=== PATIENT | female | born 1960 | race Caucasian/White ===

== ENCOUNTER 2023-09-09 10:17 | Emergency (ER) | payer MEDICARE, SELFPAY ==
[2023-09-09 10:11] VITALS: BP 143/72; PULSE 95; RESP 18; TEMP 36.4; O2SAT 99
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
[2023-09-09 10:40] LABS: Abs Immature Grans 0.08 10^3/uL (0.0-0.06); Absolute Basophil Count 0.05 10^3/uL (0.0-0.2); Absolute Eosinophil Count 0.05 10^3/uL (0.0-0.7); Absolute Lymphocyte Count 1.76 10^3/uL (1.2-3.4); Absolute Neutrophil Count 5.32 10^3/uL (1.2-6.7); Basophils % 0.6; Eosinophils % 0.6; HGB 12.1 g/dL (11.2-15.7); Lymphocytes % 21.6; MCH 41.7 pg (27.0-33.0); MCHC 34.6 % (32.0-36.0); MCV 121 fL (80-95); Neutrophils % 65.2; RDW 14.3 % (11.7-14.6); RDW-SD 64.2 fL; WBC 8.16 10^3/uL (4.4-10.8)
[2023-09-09] MEDS: Omnipaque 350 MG/ML 500 ML BTL-Imaging package IJ (10:43)
[2023-09-09] MEDS: Normal Saline - Diluent 50 ML VIAL IJ (10:48)
[2023-09-09 10:59] LABS: ALT 32 U/L (14-59); AST 24 U/L (15-37); Albumin 3.3 g/dL (3.4-5.0); Alkaline Phosphatase 84 U/L (46-116); Anion Gap 10.3 mmol/L (3-11); BUN 18 mg/dL (7-18); Bilirubin, Total 0.5 mg/dL (0.2-1.0); CO2 22.7 mmol/L (21.0-32.0); CREATININE 0.6 mg/dL (0.55-1.02); Calcium 9.1 mg/dL (8.5-10.1); Chloride 104 mmol/L (98-107); Diff Comment Agrees w/ Instrument; ETHANOL BLOOD 19.2 mg/dL (<10); Estimated GFR 100.17 (mL/min/1.73m2); Glucose 95 mg/dL (74-106); Macrocytosis 2+; Magnesium 2.4 mg/dL (1.8-2.4); Potassium 4.4 mmol/L (3.5-5.1); Sodium 137 mmol/L (136-145); Total Protein 7.3 g/dL (6.4-8.2); Troponin I < 50 ng/L (<or=60)
--- NOTE | 2023-09-09 12:34 | NUR.NOTE ---
Nursing Note: CLOCK REPAIR TECHNICIAN walked with patient. Patient did not need assistance physical assistance.Set up walker only with stand-by Bathroom and back
--- OUTSIDE RECORDS SUMMARY | 2023-09-09 12:58 | XMS_ITS | Continuity of Care Document ---
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 Name Role Phone Sarbjit Briseno Primary Care Physician U navailable Encounter BVT Date(s): 09/08/23 - 09/08/[address] [address]- [phone] Encounter Diagnosis Chronic left hip pain(Discharge Diagnosis) - 09/08/23 Facial laceration(Discharge Diagnosis) - 09/08/23 Discharge Disposition: Home or Self Care Attending Physician: JEOVANNY RODRÍGUEZ Admitting Physician: JEOVANNY RODRÍGUEZ Allergies, Adverse Reactions, Alerts No Known Allergies Assessment and Plan Extracted from: Title:General Medical Problem *ED Author:JEOVANNY RODRÍGUEZ Date:09/08/23 History of Present Illness 62-year-old woman who just 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 She did strike her head breaking her glasses on the right side and sustaining a small scratch near the lateral right eyebrow, no loss of consciousness, no change in vision, no headache or neck pain. No numbness or tingling. Increased left hip pain compared to baseline. She states she is allergic to tetanus vaccines. Review of Systems Constitutional symptoms: No fever, Respiratory symptoms: No shortness of breath, Cardiovascular symptoms: No chest pain, Musculoskeletal symptoms: Joint pain. Neurologic symptoms: No headache, no altered level of consciousness, no numbness. Additional review of systems information: All other systems reviewed and otherwise negative. Health Status Allergies: Allergic Reactions (All) No Known Allergies. Past Medical/ Family/ Social History Medical history: No active or resolved past medical history items have been selected or recorded.. Surgical history: No active procedure history items have been selected or recorded.. Family history: No family history items have been selected or recorded.. Social history: Social & Psychosocial History Social History Alcohol Current Tobacco Current everyday tobacco user Tobacco Use:. Electronic Cigarette/Vaping Electronic Cigarette Use: Never. Psychosocial History No active psychosocial history has been recorded . Problem list: Active Problems (1) Tobacco user . Physical Examination Vital Signs Vital Signs 09/08/2023 20:14 EST Temperature Temporal Artery 35.6 DegC LOW Peripheral Pulse Rate 86 bpm Respiratory Rate 18 br/min Systolic Blood Pressure 153 mmHg HI Diastolic Blood Pressure 76 mmHg Mean Arterial Pressure, Cuff 102 mmHg SpO2 96 % . Measurements 09/08/2023 20:14 EST Height/Length Estimated 160 cm Weight Estimated 84.82 kg Body Mass Index Estimated 33.13 kg/m2 . Basic Oxygen Information 09/08/2023 20:14 EST Oxygen Therapy Room air . General: Alert, no acute distress. Skin: Warm. Head: Normocephalic, small scratch R lateral eyebrow, no active bleeding.. Ears, nose, mouth and throat: Oral mucosa moist. Cardiovascular: Regular rate and rhythm. Respiratory: Lungs are clear to auscultation, respirations are non-labored. Gastrointestinal: Soft, Nontender. Musculoskeletal: Normal ROM, normal strength, mild left hip tenderness, normal ROM. Neurological: Alert and oriented to person, place, time, and situation. Psychiatric: Cooperative, appropriate mood & affect. Medical Decision Making Radiology results: X-ray (ST) X-Ray: ?? XR Hip 2-3 Views Lt w/ Pelvis ?? 09/08/23 21:54:03 EXAMINATION: XR Hip 2-3 Views Lt w/ Pelvis CLINICAL HISTORY: L hip pain s/p fall TECHNIQUE: Single frontal view of the pelvis. 2 views of the left hip. 3 images. COMPARISON: None FINDINGS: Mild degenerative changes in bilateral SI joints. Moderate degenerative changes in bilateral hip joints and pubic symphysis. Symmetric SI joints. No diastasis of SI joints or pubic symphysis. No acute fracture or dislocation. No abnormal soft tissue gas or radiopaque foreign body. IMPRESSION: * No acute fracture or dislocation. * Moderate bilateral hip osteoarthropathy. Thank you for letting us participate in the care of this patient. If you are a health care provider and have any questions regarding this report, please contact the number below. For patients who have questions please contact the health career development coordinator that requested your imaging first. ?? Signed By: NAS HARRY , emergency physician interpretation: No fracture or dislocation appreciated on my independent interpretation. Notes: E collar removed, no tenderness, low risk mechanism, not intoxicated, able to freely range neck without pain or neurologic symptoms, clinically cleared.. Reexamination/ Reevaluation Vital signs Basic Oxygen Information 09/08/2023 20:14 EST Oxygen Therapy Room air Given walker, amble to ambulate to bathroom with walker (which is her baseline). Impression and Plan Diagnosis Facial laceration (STO22-CF S01.81XA, Discharge, Medical) Chronic left hip pain (YRV01-PM M25.552, Discharge, Medical) Plan Condition: Stable. Patient was given the following educational materials: Laceration Care, Adult, Hip Pain. Functional Status 09/08/23 History of Fall in Last 3 Months Perez Y anupam Mental Status 09/08/23 Level of Consciousness Alert Results Radiology Reports * Exam Date Time Procedure Performing Provider Status 09/08/23 9:28 PM XR Hip 2-3 Views Lt w/ Pelvis Milvia Gee; Urvashi (Verified) Notes: (XR Hip 2-3 Views Lt w/ Pelvis) Reason For Exam: L hip pain s/p fall XR Hip 2-3 Views Lt w/ Pelvis EXAMINATION: XR Hip 2-3 Views Lt w/ Pelvis CLINICAL HISTORY: L hip pain s/p fall TECHNIQUE: Single frontal view of the pelvis. 2 views of the left hip. 3 images. COMPARISON: None FINDINGS: Mild degenerative changes in bilateral SI joints. Moderate degenerative changes in bilateral hip joints and pubic symphysis. Symmetric SI joints. No diastasis of SI joints or pubic symphysis. No acute fracture or dislocation. No abnormal soft tissue gas or radiopaque foreign body. IMPRESSION: * No acute fracture or dislocation. * Moderate bilateral hip osteoarthropathy. Thank you for letting us participate in the care of this patient. If you are a health care provider and have any questions regarding this report, please contact the number below. For patients who have questions please contact the health career development coordinator that requested your imaging first. Final Dictated: 09/08/2023 9:54 pm NAS HARRY Signed (Electronic Signature): 09/08/2023 9:54 pm Signed by: NAS HARRY Vital Signs Most recent to oldest [Reference Range]: 1 Temperature Temporal Artery [36.3-37.8 D egC] 35.6 DegC *LOW* (09/08/23 8:14 PM) Peripheral Pulse Rate [60-100 bpm] 86 bp m (09/08/23 8:14 PM) Respiratory Rate [14-20 br/min] 18 br/mi n (09/08/23 8:14 PM) Blood Pressure [90-140/60-90 mmHg] 153/7 6mmHg *HI* (09/08/23 8:14 PM) Mean Arterial Pressure, Cuff [70-110 mmH g] 102 mmHg (09/08/23 8:14 PM) SpO2 [92-100 %] 96 % (09/08/23 8:14 PM) Height/Length Estimated 160 cm (09/08/23 8:14 PM) Weight Estimated 84.82 kg (09/08/23 8:14 PM) Body Mass Index Estimated 33.13 kg/m2 (09/08/23 8:14 PM) Social History Social History Type Response Tobacco Current everyday tob acco user Tobacco Use:. Sex Female Hospital Discharge Instructions Patient Education 09/08/2023 22:15:34 Hip Pain Hip Pain The hip is the joint between the upper legs and the lower pelvis. The bones, cartilage, tendons, and muscles of your hip joint support your body and allow you to move around. Hip pain can range from a minor ache to severe pain in one or both of your hips. The pain may be felt on the inside of the hip joint near the groin, or on the outside near the buttocks and upper thigh. You may also have swelling or stiffness in your hip area. Follow these instructions at home: Managing pain, stiffness, and swelling ??? If directed, put ice on the painful area. To do this: ??? Put ice in a plastic bag. ??? Place a towel between your skin and the bag. ??? Leave the ice on for 20 minutes, 2???3 times a day. ??? If directed, apply heat to the affected area as often as told by your health care provider. Usethe heat source that your health care provider recommends, such as a moist heat pack or a heating pad. ??? Place a towel between your skin and the heat source. ??? Leave the heat on for 20???30 minutes. ??? Remove the heat if your skin turns bright red. This is especially important if you are unable to feel pain, heat, or cold. You may have a greater risk of getting burned. Activity ??? Do exercises as told by your health care provider. ??? Avoid activities that cause pain. General instructions ??? Take ecsg-igk-dxckkie and prescription medicines only as told by your health care provider. ??? Keep a journal of your symptoms. Write down: ??? How often you have hip pain. ??? The location of your pain. ??? What the pain feels like. ??? What makes the pain worse. ??? Sleep with a pillow between your legs on your most comfortable side. ??? Keep all follow-up visits as told by your health care provider. This is important. Contact a health care provider if: ??? You cannot put weight on your leg. ??? Your pain or swelling continues or gets worse after one week. ??? It gets harder to walk. ??? You have a fever. Get help right away if: ??? You fall. ??? You have a sudden increase in pain and swelling in your hip. ??? Your hip is red or swollen or very tender to touch. Summary ??? Hip pain can range from a minor ache to severe pain in one or both of your hips. ??? The pain may be felt on the inside of the hip joint near the groin, or on the outside near the buttocks and upper thigh. ??? Avoid activities that cause pain. ??? Write down how often you have hip pain, the location of the pain, what makes it worse, and whatit feels like. This information is not intended to replace advice given to you by your health care provider. Make sure you discuss any questions you have with your health care provider. Document Revised: 01/31/2020 Document Reviewed: 01/31/2020 [employer] Patient Education ?? 2022 [employer]. 09/08/2023 22:15:34 Laceration Care, Adult Laceration Care, Adult A laceration is a cut that may go through all layers of the skin and into the tissue that is right under the skin. Some lacerations heal on their own. Others need to be closed with stitches (sutures), jaleesa, skin adhesive strips, or skin glue. Proper care of a laceration reduces the risk for infection, helps the laceration heal better, and may prevent scarring. General tips ??? Keep the wound clean and dry. ??? Do not scratch or pick at the wound. ??? Wash your hands with soap and water for at least 20 seconds before and after touching your wound or changing your bandage (dressing). If soap and water are not available, use hand party plan salesperson. ??? Do not usedisinfectants or antiseptics, such as rubbing alcohol, to clean your wound unless told by your health care provider. ??? If you were given a dressing, you should change it at least once a day, or as told by your health care provider. You should also change it if it becomes wet or dirty. How to care for your laceration If sutures or jaleesa were used: ??? Keep the wound completely dry for the first 24 hours, or as told by your health care provider. After that time, you may shower or bathe. Do not soak your wound in water until after the sutures orstaples have been removed. ??? Clean the wound once each day, or as told by your health care provider. To do this: ??? Wash the wound with soap and water. ??? Rinse the wound with water to remove all soap. ??? Pat the wound dry with a clean towel. Do not rub the wound. ??? After cleaning the wound, apply a thin layer of antibiotic ointment, other topical ointments, or a non-adherent dressing as told by your health care provider. This will help prevent infection andkeep the dressing from sticking to the wound. ??? Have the sutures or jaleesa removed as told by your health care provider. Do not remove suturesor jaleesa yourself. If skin adhesive strips were used: ??? Do not get the skin adhesive strips wet. You may shower or bathe, but keep the wound dry. ??? If the wound gets wet, pat it dry with a clean towel. Do not rub the wound. ??? Skin adhesive strips fall off on their own. If adhesive strip edges start to loosen and curl up, you may trim the loose edges. Do not remove adhesive strips completely unless your health care provider tells you to do that. If skin glue was used: ??? You may shower or bathe, but try to keep the wound dry. Do not soak the wound in water. ??? After showering or bathing, pat the wound dry with a clean towel. Do not rub the wound. ??? Do not do any activities that will make you sweat a lot until the skin glue has fallen off. ??? Do not apply liquid, cream, or ointment medicine to the wound while the skin glue is in place. Doing this may loosen the film before the wound has healed. ??? If a dressing is placed over the wound, do not apply tape directly over the skin glue. Doing this may cause the glue to be pulled off before the wound has healed. ??? Do not pick at the glue. Skin glue usually remains in place for 5???10 days and then falls off the skin. Follow these instructions at home: Medicines ??? Take xila-dsw-ykmftca and prescription medicines only as told by your health care provider. ??? If you were prescribed an antibiotic medicine or ointment, take or apply it as told by your health care provider. Do not stop using it even if your condition improves. Managing pain and swelling ??? If directed, put ice on the injured area. To do this: ??? Put ice in a plastic bag. ??? Place a towel between your skin and the bag. ??? Leave the ice on for 20 minutes, 2???3 times a day. ??? Remove the ice if your skin turns bright red. This is very important. If you cannot feel pain, heat, or cold, you have a greater risk of damage to the area. ??? Raise (elevate) the injured area above the level of your heart while you are sitting or lying down for the first 24???48 hours after the laceration is repaired. General instructions ??? Avoid any activity that could cause your wound to reopen. ??? Check your wound every day for signs of infection. Watch for: ??? More redness, swelling, or pain. ??? Fluid or blood. ??? Warmth. ??? Pus or a bad smell. ??? Keep all follow-up visits. This is important. Contact a health care provider if: ??? You received a tetanus shot and you have swelling, severe pain, redness, or bleeding at the injection site. ??? Your closed wound breaks open. ??? You have any of these signs of infection: ??? More redness, swelling, or pain around your wound. ??? Fluid or blood coming from your wound. ??? Warmth coming from your wound. ??? Pus or a bad smell coming from your wound. ??? A fever. ??? You notice something coming out of the wound, such as wood or glass. ??? Your pain is not controlled with medicine. ??? You notice a change in the color of your skin near your wound. ??? You need to change the dressing often. ??? You develop a new rash. ??? You have numbness around the wound. Get help right away if: ??? You develop severe swelling around the wound. ??? Your pain suddenly increases and is severe. ??? You develop painful lumps near the wound or on skin anywhere else on your body. ??? You have a red streak going away from your wound. ??? The wound is on your hand or foot, and you cannot properly move a finger or toe. ??? The wound is on your hand or foot, and you notice that your fingers or toes look pale or bluish. Summary ??? A laceration is a cut that may go through all layers of the skin and into the tissue that is right under the skin. ??? Some lacerations heal on their own. Others need to be closed with stitches (sutures), jaleesa, skin adhesive strips, or skin glue. ??? Proper care of a laceration reduces the risk of infection, helps the laceration heal better, and may prevent scarring. This information is not intended to replace advice given to you by your health care provider. Make sure you discuss any questions you have with your health care provider. Document Revised: 11/22/2021 Document Reviewed: 11/22/2021 [employer] Patient Education ?? 2022 [employer]. Physician Emergency department Note * JEOVANNY RODRÍGUEZ: MODIFY, SIGN, VERIFY, PERFORM Event Display: ED Note - Physician Authored Date: Patient: EDE CHAND Age: 62 years Sex: Female : 1960 Associated Diagnoses: Facial laceration; Chronic left hip pain Author: JEOVANNY RODRÍGUEZ Basic Information Additional information: Chief Complaint from Nursing Triage Note : Chief Complaint 09/08/2023 20:14 EST Chief Complaint Pt stopped to use bathroom when driving on highway, fell, was unable to get up. Recent hospitalization/d/c today/ for etoh withdrawal, denies etoh use today.Pt reports previous L hip injury, uses walker at baseline. . History of Present Illness 62-year-old woman who just got out of alcohol detox today, with chronic left hip pain who was driving and felt the need to urinate and got out of the car on the side of the road and then fell and wasunable to get back up. She did strike her head breaking her glasses on the right side and sustaining a small scratch near the lateral right eyebrow, no loss of consciousness, no change in vision, no h eadache or neck pain. No numbness or tingling. Increased left hip pain compared to baseline. She states she is allergic to tetanus vaccines. Review of Systems Constitutional symptoms: No fever, Respiratory symptoms: No shortness of breath, Cardiovascular symptoms: No chest pain, Musculoskeletal symptoms: Joint pain. Neurologic symptoms: No headache, no altered level of consciousness, no numbness. Additional review of systems information: All other systems reviewed and otherwise negative. Health Status Allergies: Allergic Reactions (All) No Known Allergies. Past Medical/ Family/ Social History Medical history: No active or resolved past medical history items have been selected or recorded.. Surgical history: No active procedure history items have been selected or recorded.. Family history: No family history items have been selected or recorded.. Social history: Social & Psychosocial History Social History Alcohol Current Tobacco Current everyday tobacco user Tobacco Use:. Electronic Cigarette/Vaping Electronic Cigarette Use: Never. Psychosocial History No active psychosocial history has been recorded . Problem list: Active Problems (1) Tobacco user . Physical Examination Vital Signs Vital Signs 09/08/2023 20:14 EST Temperature Temporal Artery 35.6 DegC LOW Peripheral Pulse Rate 86 bpm Respiratory Rate 18 br/min Systolic Blood Pressure 153 mmHg HI Diastolic Blood Pressure 76 mmHg Mean Arterial Pressure, Cuff 102 mmHg SpO2 96 % . Measurements 09/08/2023 20:14 EST Height/Length Estimated 160 cm Weight Estimated 84.82 kg Body Mass Index Estimated 33.13 kg/m2 . Basic Oxygen Information 09/08/2023 20:14 EST Oxygen Therapy Room air . General: Alert, no acute distress. Skin: Warm. Head: Normocephalic, small scratch R lateral eyebrow, no active bleeding.. Ears, nose, mouth and throat: Oral mucosa moist. Cardiovascular: Regular rate and rhythm. Respiratory: Lungs are clear to auscultation, respirations are non-labored. Gastrointestinal: Soft, Nontender. Musculoskeletal: Normal ROM, normal strength, mild left hip tenderness, normal ROM. Neurological: Alert and oriented to person, place, time, and situation. Psychiatric: Cooperative, appropriate mood & affect. Medical Decision Making Radiology results: X-ray (ST) X-Ray: ?? XR Hip 2-3 Views Lt w/ Pelvis ?? 09/08/23 21:54:03 EXAMINATION: XR Hip 2-3 Views Lt w/ Pelvis CLINICAL HISTORY: L hip pain s/p fall TECHNIQUE: Single frontal view of the pelvis. 2 views of the left hip. 3 images. COMPARISON: None FINDINGS: Mild degenerative changes in bilateral SI joints. Moderate degenerative changes in bilateral hip joints and pubic symphysis. Symmetric SI joints. No diastasis of SI joints or pubic symphysis. No acute fracture or dislocation. No abnormal soft tissue gas or radiopaque foreign body. IMPRESSION: * No acute fracture or dislocation. * Moderate bilateral hip osteoarthropathy. Thank you for letting us participate in the care of this patient. If you are a health care provider and have any questions regarding this report, please contact the number below. For patients who have questions please contact the health career development coordinator that requested your imaging first. ?? Signed By: NAS HARRY , emergency physician interpretation: No fracture or dislocation appreciated on my independent interpretation. Notes: E collar removed, no tenderness, low risk mechanism, not intoxicated, able to freely range neck without pain or neurologic symptoms, clinically cleared.. Reexamination/ Reevaluation Vital signs Basic Oxygen Information 09/08/2023 20:14 EST Oxygen Therapy Room air Given walker, amble to ambulate to bathroom with walker (which is her baseline). Impression and Plan Diagnosis Facial laceration (NXV05-NK S01.81XA, Discharge, Medical) Chronic left hip pain (POG00-LF M25.552, Discharge, Medical) Plan Condition: Stable. Patient was given the following educational materials: Laceration Care, Adult, Hip Pain. [Electronically Signed on: 09/08/2023 22:38 EST] JEOVANNY RODRÍGUEZ MD [Verified on: 09/08/2023 22:38 EST] JEOVANNY RODRÍGUEZ MD Patient Care team information Care Team Personnel Name: Sarbjit Briseno Position: [facility] No Access Member Role: Primary Care Physician Name: Merlene Simental Position: [facility] RN LP PCSC Member Role: Registered Nurse Name: JEOVANNY RODRÍGUEZ Position: [facility] ED Physician LP Member Role: Attending Physician Address: Address: [address] [place] [id number]
[2023-09-09 13:28] VITALS: BP 108/54; PULSE 94; RESP 16; O2SAT 98
[2023-09-09 13:57] LABS: Troponin I < 50 ng/L (<or=60)
== END 2023-09-09 13:42 | disposition home or self-care (01) ==
PROVIDERS: Emergency Provider Emergency Medicine Emergency Medical Services
DX: M25.552 Pain in left hip (principal); S01.112A Laceration without foreign body of left eyelid and periocular area, initial encounter; Y90.0 Blood alcohol level of less than 20 mg/100 ml; V89.2XXA Person injured in unspecified motor-vehicle accident, traffic, initial encounter; Y92.411 Interstate highway as the place of occurrence of the external cause
CPT/HCPCS: 36415; 74177; 80053; 93005; 99285; 70450; 71260; 72125; 80320; 83735; 84484; 85025; 93010; 99284